=== PATIENT | female | born 1930 | race Caucasian/White ===

== ENCOUNTER 2017-02-13 09:43 | Inpatient (IN) | payer MEDICARE, BC ==
--- NOTE | ~2017-02-13 | DS ---
Discharge Summary [facility] [address] [place]. [address] NAME: RENUKA LAKHANI : 32 STATUS : ADM IN PAT#: [id number] AGE: 86 ADM/REG DATE : 02/13/17 MR#: [id number] REPORT SERV DATE: 02/17/17 DICTATED BY: MOISES WEINBERG DATE: 02/17/17 REPORT STATUS : Draft TRANSCRIBED BY: MODL DATE: 02/17/17 ADMISSION DATE: 02/13/2017 DISCHARGE DATE: 02/17/2017 DISCHARGE DIAGNOSES: 1. Drug reaction most likely related to either Macrodantin or Levaquin. 2. Acute kidney injury, currently improving. 3. Chronic kidney disease stage 3. 4. Type 2 diabetes mellitus. 5. Hypertension. 6. Morbid obesity. 7. Hyperlipidemia. 8. Degenerative joint disease. CONSULTANTS DURING THIS HOSPITALIZATION: None. INVASIVE PROCEDURES DONE DURING THIS HOSPITALIZATION: None. BRIEF HISTORY OF PRESENT ILLNESS: The patient is an 86-year-old, white female, triaged in the emergency room on 02/13/2017 at 0750 hours for respiratory complaints. The patient was referred to the Hospitalist Service for a rash on her lower extremities. There may have been some venous congestion on her chest x-ray. So she was admitted. For detailed history and physical exam, please see my note dictated on 02/13/2017. HOSPITAL COURSE: After being admitted to the hospital, this patient was thought to have a drug reaction most likely related to the recent use of antibiotics. I did not find any evidence of any infection in her urine nor in her lungs, because her procalcitonin level was normal. All her other parameters were stable. After being admitted to the hospital, this patient was taken off all antibiotics. We continued to observe her. There was no evidence of any significant failure. We gave her aggressive nebulizing treatments. I did not want to initiate any antidiuretics. We did hold her hydrochlorothiazide in light of her recent decline in her kidney function and continued to observe. Over the last four days, she has continued to improve. Her creatinine has gone down to about 2.35 today. Her baseline is somewhere around 1.8 or 2.0 and less. I feel that she may be continuing to improve. At this point, her blood pressure had significantly been elevated. So we will resume some of her antihypertensives. She remained stable. Otherwise, we were successfully able to wean her oxygen off. I do not see the need for steroids or diuretics in this elderly patient with multiple comorbidities. She remained stable and is being discharged in stable condition. I have ordered a repeat creatinine again in one week for Dr. Jake Stearns to follow. DISCHARGE DISPOSITION: Back to assisted living. DISCHARGE ACTIVITY: As tolerated. Discharge Summary [address] [place]. [address] NAME: RENUKA LAKHANI : 31 STATUS : ADM IN PAT#: [id number] AGE: 86 ADM/REG DATE : 02/13/17 MR#: [id number] REPORT SERV DATE: 02/17/17 DICTATED BY: MOISES WEINBERG DATE: 02/17/17 REPORT STATUS : Draft TRANSCRIBED BY: ERICKSON DATE: 02/17/17 DISCHARGE DIET: Low sodium, 1800-calorie [place] [employer] Diet. DISCHARGE MEDICATIONS: Januvia 100 mg once daily, Welchol 1250 once daily, Lexapro 20 mg daily, iron 325 mg daily, Neurontin 600 mg twice daily, Lopressor 12.5 mg p.o. twice daily, Nexium 40 mg p.o. once at bedtime, acidophilus 1 tablet p.o. twice daily, simvastatin 10 mg once at bedtime, nitroglycerin 0.4 sublingual p.r.n. for chest pain, DuoNebs one neb every four hours p.r.n. while awake, hydrochlorothiazide 25 mg p.o. once daily, Fiber-Lax, glipizide XL 5 mg once daily, [place] 5/325 one tablet twice daily and q.6 p.r.n. for pain, Artificial Tears as needed, amlodipine 5 mg daily. DISCHARGE FOLLOWUP: With Dr. Jake Stearns in one week. More than 35 minutes spent planning this patient's discharge, reconciling medications, discussing hospital care and followup with the son-in-law over the phone. KAREY/ERICKSON Moises Weinberg M.D. / [id number] CC: Marion Landa M.D.
--- NOTE | ~2017-02-13 | HP ---
History And Physical [id number] [place]. [address] NAME: RENUKA LAKHANI : 32 STATUS : ADM IN [facility]#: [id number] AGE: 86 ADM/REG DATE : 02/13/17 MR#: [id number] REPORT SERV DATE: 02/13/17 DICTATED BY: MOISES GREEN DATE: 02/13/17 REPORT STATUS : Draft TRANSCRIBED BY: MODSatish DATE: 02/13/17 DATE OF ADMISSION: 02/13/2017 CHIEF COMPLAINT: Rash on the legs. BRIEF HISTORY OF PRESENT ILLNESS: The patient is an 86-year-old white female, resident of an assisted living. Apparently, on 02/08/2017, was given Macrobid for what appeared to be a urinary tract infection and then she was diagnosed with pneumonia on 02/11/2017, so she was started on Levaquin. She developed this mild rash on her lower extremity. She has had significant itching. She has back itching. She was brought to the hospital. Her creatinine at baseline has been around 1.8 on 02/08/2017, and had increased up to 2.5 to 2.8, so she has been referred to the Hospitalist Service for further treatment and evaluation. She was noted to have a slightly low pO2, but there was no ABG done in the emergency room, but because she had the elevated creatinine, she was referred to the Hospitalist Service for further treatment and evaluation. REVIEW OF SYSTEMS: Otherwise a 12-point review of systems is negative, as obtained from the patient and the daughter at the bedside. PAST MEDICAL HISTORY: Obtained from the previous records and from the patient directly. She has a history of type 2 diabetes mellitus with peripheral neuropathy, gastroesophageal reflux, hyperlipidemia, obesity, depression and anxiety, osteoarthritis, osteoporosis, essential hypertension, chronic kidney disease with a baseline creatinine around 1.3 to 1.5, and right side ophthalmic distribution zoster in the past as well. ALLERGIES: CODEINE AND MORPHINE. PAST SURGICAL HISTORY: Significant for appendectomy, cholecystectomy, hysterectomy, bilateral total knee arthroplasties in the past, shoulder surgery in 2007, and history of Achilles tendon repair in the past. HOME MEDICATIONS: DuoNeb 1 neb every 4 hours p.r.n. while awake, Norvasc 5 mg daily p.r.n. for blood pressure greater than 160 systolic, Refresh 1 to 2 drops ophthalmic at bedtime, Welchol 1250 mg once daily, Lexapro 20 mg once daily, Nexium 40 mg once daily, iron 325 mg twice daily, gabapentin 600 mg twice daily, Glucotrol XL 5 mg once daily, Robitussin, hydrochlorothiazide 25 mg p.o. daily, hydrocodone 5/325 twice daily and q.6 p.r.n., acidophilus chewable 1 tablet twice daily, Levaquin 750 mg once every evening, Lopressor 12.5 mg twice daily, Macrobid 100 mg twice daily, Nitrostat 0.4 sublingual p.r.n., simvastatin 10 mg once at bedtime, Januvia 100 mg once at bedtime, and Fiber-Lax. SOCIAL HISTORY: Currently resides at an assisted living. She ambulates using a walker. She denies use of alcohol, tobacco, or illicit substances. FAMILY HISTORY: Significant for hypertension and type 2 diabetes mellitus. History And Physical [address] [address] NAME: RENUKA LAKHANI : 32 STATUS : ADM IN [facility]#: [id number] AGE: 86 ADM/REG DATE : 02/13/17 MR#: [id number] REPORT SERV DATE: 02/13/17 DICTATED BY: MOISES GREEN DATE: 02/13/17 REPORT STATUS : Draft TRANSCRIBED BY: ERICKSON DATE: 02/13/17 PHYSICAL EXAMINATION: GENERAL: Elderly white female, obese, lying in a gurney, appears to be in no obvious respiratory distress. She is awake, alert. She is oriented. VITAL SIGNS: Blood pressure 145/51, temp is 98.1, pulse of 72, and saturation of 99% on 2 L of O2. HEENT: Head is normocephalic, atraumatic. Pupils are equal, round, and reactive to light. Extraocular muscles are intact. Sclerae anicteric. Conjunctivae normal. Oropharynx is without lesion. Tongue protrusion is midline. Uvula is midline. NECK: Supple. No jugular venous distention. No carotid bruits or thyromegaly is appreciated. No lymphadenopathy in the neck is palpable. HEART: Regular rate and rhythm. No murmurs, rubs, or gallops are heard. Occasional PACs are noted. PMI is nondisplaced. LUNGS: Clear to auscultation both anteriorly and posteriorly in the periphery; however, expiratory wheezing in the central airways is noted. There is no evidence of any stridor. There is no evidence of any focal consolidation. ABDOMEN: Morbidly obese, soft, nontender, good bowel sounds. No rebound or guarding. No organomegaly. EXTREMITIES: Without cyanosis, clubbing. 1+ pitting edema. SKIN: Shows a fine rash on the lower extremities, most likely chronic. Does not appear to be acute; however, there are few more spots in the back area as well, and there is significant dryness of the skin. NEUROLOGIC: Typical stocking and glove type of sensorineural loss is noted, but otherwise unremarkable. LABORATORY DATA: No ABG were done. Procalcitonin level is 0.34, sodium of 131, potassium of 3.9, chloride of 90, bicarb is 28, BUN 47, creatinine 2.85, glucose is 138, calcium is 7.0, albumin of 2.8. Total protein is normal. Liver function studies are normal. Troponin is less than 0.02. BNP is 51, lactate level is 1.1. White count is 8.6, hemoglobin of 10.0, hematocrit of 29, and platelet count is 179,000, no left shift. PT, INR, and PTT are all normal. Urinalysis is negative with rare bacteria. Chest x-ray: Mild venous congestion, but otherwise unremarkable. IMPRESSION: 1. Probable drug reaction. 2. Acute kidney injury most likely due to dehydration and use of hydrochlorothiazide. 3. Hypertension. 4. Type 2 diabetes mellitus. 5. Morbid obesity. 6. Hyperlipidemia. 7. Degenerative joint disease. PLAN: The patient will be admitted for observation, IV fluids x1 liter will be given. We will replace electrolytes per electrolyte protocol. Check labs in the a.m. Check a UA, C & S. The UA appears to be fairly unremarkable at this time. I do not see an evidence of pneumonia nor any other infection. I do not recommend use of antibiotics in this patient at this time. We will give her aggressive nebulizing treatments. Wean O2. Home medications have been addressed. The patient remains a full code. History And Physical [address] [place]. [address] NAME: RENUKA LAKHANI : 31 STATUS : ADM IN PAT#: [id number] AGE: 86 ADM/REG DATE : 02/13/17 MR#: [id number] REPORT SERV DATE: 02/13/17 DICTATED BY: MOISES GREEN DATE: 02/13/17 REPORT STATUS : Draft TRANSCRIBED BY: ERICKSON DATE: 02/13/17 SV/ERICKSON Moises Green M.D. / [id number] CC: Marion Landa M.D.
[2017-02-13 08:49] LABS: BASOPHILS 0.1 %; BASOPHILS ABSOLUTE 0.01 10/3/uL (0.0-0.16); EOSINOPHILS 10.2 %; EOSINOPHILS ABSOLUTE 0.88 10/3/uL (0.0-0.53); ER CBC TAT 0 Hrs 07 Mins; IMMATURE GRANULOCYTES 0.3 %; IMMATURE GRANULOCYTES ABSOLUTE 0.03 10/3/uL (0.0-0.11); LYMPHOCYTES 10.9 %; LYMPHOCYTES ABSOLUTE 0.94 10/3/uL (0.67-4.30); MEAN CORPUSCULAR HEMOGLOB 31.1 pg (26.0-34.0); MEAN PLATELET VOLUME 9.2 fL (9.2-13.0); MONOCYTES 3.5 %; NEUTROPHILS ABSOLUTE 6.44 10/3/uL (2.02-8.40); PLATELET COUNT 179 10/3/uL (150-400); RED CELL COUNT 3.22 10/6/uL (4.0-5.6); WHITE BLOOD CELLS 8.6 10/3/uL (4.5-10.5)
[2017-02-13 08:52] LABS: HEMATOCRIT 29.1 % (36.0-48.0); MANUAL DIFF NO %; MEAN CORPUS HGB CONC 34.4 g/dL (32.0-36.0); MEAN CORPUSCULAR VOLUME 90.4 fL (80-100)
[2017-02-13 08:55] LABS: ASCORBIC ACID (UR NOT ORDER) NEG (NEG); BILIRUBIN, URINE NEGATIVE (NEG); ER URINALYSIS TAT 0 Hrs 08 Mins; KETONE, URINE NEGATIVE (NEG); LEUKOCYTE ESTERASE(NOT OR NEG (NEG); NITRITE (URINE) NEG (NEG); WBC (NOT ORDERED) (RFLEX) 2 (0-5)
[2017-02-13 08:58] LABS: INTERNATIONAL NORMAL RATI 1.2 UNITS (-); PARTIAL THROMBO TIME 30.9 SEC (22.5-37.2)
[2017-02-13 09:06] LABS: PROTIME (NOT ORD) 14.9 SEC (12.0-14.5)
[2017-02-13 09:07] LABS: A/G RATIO 0.7 (0.7-1.9); ALBUMIN 2.8 G/DL (3.5-5.0); ALKALINE PHOSPHATASE 76 U/L (45-117); BUN (BLOOD UREA NITROGEN) 47 MG/DL (6-23); CHLORIDE, SERUM 90 MMOL/L (96-112); CO2 (CARBON DIOXIDE) 28 MMOL/L (24-34); CREATININE 2.85 MG/DL (0.55-1.02); GFR AFRICAN AMERICAN 17 ML/MIN (>=60); GFR NON AFRICAN AMERICAN 14 ML/MIN (>=60); GLOBULIN 3.8 G/DL (2.5-4.1); GLUCOSE, SERUM 138 MG/DL (60-99); POTASSIUM, SERUM 3.9 MMOL/L (3.5-5.3); SGOT(AST) 23 U/L (5-40); SGPT(ALT) 25 U/L (5-65); SODIUM, SERUM 131 MMOL/L (135-148); TOTAL PROTEIN 6.6 G/DL (6.0-8.5); TROPONIN I <0.02 NG/ML (<0.05)
[2017-02-13 09:12] LABS: LACTATE 1.1 MMOL/L (0.3-2.4)
[2017-02-13 09:35] LABS: PROCALCITONIN 0.34 ng/mL (<0.5)
[~2017-02-13 09:43] MED LIST: A/B OTIC DROPS OT; ACIDOPHILU2 PO; ACTOS30 PO; CELEBREX2 PO; COZ50 PO; DUONEB INH; FERROUS SULF325 M1 PO; FIBERCON PO; FLAG500TAB PO; FORTAMET1000 MG PO; GLUCOPHAGE1000 MG PO; GLUCOTRO10 PO; GLUCPH PO; GLUCXL5 PO; IMOD PO; IRON325 MG PO; JANUVIA100 MG PO; LEVAQUIN5T PO; LEXAPRO20 PO; LIQUITEARS OPH; LOP25 PO; LORT7 PO; MAX25 PO; MIRALAXPKT PO; NEUR600 PO; NEXIUM40 PO; NITROSTAT0.4 MG PO; NORCO1 TA1 PO; NORV5 PO; NYSTOP100000 MG TOP; REFRESH PLUS0.5 % OPH; REG PO; SYSTANE OPH; T PO; TESS PO; TUSSIN DM1 M1 PO; TUSSINDMSF PO; VENTOLIN HFA INH; WELCHOL 625 MG625 MG OR; WELCHOL 625 MG625 MG PO; ZOCOR10 PO
[2017-02-13] MEDS ORDERED: NITROSTAT0.4 MG SL (10:07)
[2017-02-13] MEDS ORDERED: DUONEB INH (10:07)
[2017-02-13] MEDS ORDERED: MACROBID PO (10:08)
[2017-02-13] MEDS ORDERED: GGDM5ML PO ×2 (10:10→10:30)
[2017-02-13] MEDS ORDERED: LEVAQUIN750 MG PO (10:18)
[2017-02-13] MEDS ORDERED: NEXIUM40 PO (10:19)
[2017-02-13] MEDS ORDERED: HYDROCHLOROT25 MG PO (10:19)
[2017-02-13] MEDS ORDERED: GLUCXL5 PO (10:20)
[2017-02-13] MEDS ORDERED: LEXAPRO20 PO (10:20)
[2017-02-13] MEDS ORDERED: FIBER LAX PO (10:20)
[2017-02-13] MEDS ORDERED: NORCO1 TA1 PO ×2 (10:21→10:25)
[2017-02-13] MEDS ORDERED: WELCHOL 625 MG625 MG PO (10:21)
[2017-02-13] MEDS ORDERED: LOP25 PO (10:21)
[2017-02-13] MEDS ORDERED: NEUR600 PO (10:23)
[2017-02-13] MEDS ORDERED: ACIDOPHILU2 PO (10:24)
[2017-02-13] MEDS ORDERED: FERROUS SULF325 M1 PO (10:24)
[2017-02-13] MEDS ORDERED: JANUVIA100 MG PO (10:25)
[2017-02-13] MEDS ORDERED: REFRESH OPH SO0.3 ML OPH (10:25)
[2017-02-13] MEDS ORDERED: ZOCOR10 PO (10:25)
[2017-02-13] MEDS ORDERED: NORV5 PO (10:26)
[2017-02-13 14:42] LABS: ALLENS TEST Pos; BE (BASE EXCESS) 2.2 MEQ/L (0 +/- 2.5); CARBOXYHEMOGLOBIN 1.3 % (0-3); HCO3 (ACTUAL BICARBONATE) 27.6 MEQ/L (23-27); HEMOBLOGIN CONTENT 10.4 G/DL (12-16); INSTRUMENT SERIAL # 8087; METHEMOGLOBIN 0.2 % (0-3); PCO2 (CO2 TENSION) 47 MMHG (35-45); PO2 (O2 TENSION) 60 MMHG (79-93); SAMPLE Arterial; pH 7.39 (7.37-7.43)
[2017-02-13 15:24] LABS: BASOPHILS 0.4 %; BASOPHILS ABSOLUTE 0.03 10/3/uL (0.0-0.16); EOSINOPHILS 10.4 %; EOSINOPHILS ABSOLUTE 0.74 10/3/uL (0.0-0.53); HEMATOCRIT 28.9 % (36.0-48.0); HEMOGLOBIN 9.5 g/dL (12.0-16.0); IMMATURE GRANULOCYTES 0.4 %; IMMATURE GRANULOCYTES ABSOLUTE 0.03 10/3/uL (0.0-0.11); LYMPHOCYTES 12.4 %; LYMPHOCYTES ABSOLUTE 0.88 10/3/uL (0.67-4.30); MEAN CORPUS HGB CONC 32.9 g/dL (32.0-36.0); MEAN CORPUSCULAR HEMOGLOB 30.2 pg (26.0-34.0); MEAN CORPUSCULAR VOLUME 91.7 fL (80-100); MEAN PLATELET VOLUME 9.5 fL (9.2-13.0); MONOCYTES 4.4 %; MONOCYTES ABSOLUTE 0.31 10/3/uL (0.21-1.20); NEUTROPHILS ABSOLUTE 5.11 10/3/uL (2.02-8.40); PLATELET COUNT 167 10/3/uL (150-400); RED CELL COUNT 3.15 10/6/uL (4.0-5.6); WHITE BLOOD CELLS 7.1 10/3/uL (4.5-10.5)
[2017-02-13 15:27] LABS: MANUAL DIFF NO %
[2017-02-13 15:35] LABS: ALBUMIN 2.7 G/DL (3.5-5.0); BUN (BLOOD UREA NITROGEN) 47 MG/DL (6-23); CALCIUM, SERUM 6.8 MG/DL (8.5-10.4); CHLORIDE, SERUM 93 MMOL/L (96-112); CO2 (CARBON DIOXIDE) 27 MMOL/L (24-34); CREATININE 2.94 MG/DL (0.55-1.02); GFR AFRICAN AMERICAN 16 ML/MIN (>=60); GFR NON AFRICAN AMERICAN 14 ML/MIN (>=60); GLUCOSE, SERUM 184 MG/DL (60-99); PHOSPHORUS, SERUM 3.7 MG/DL (2.5-4.5); POTASSIUM, SERUM 3.9 MMOL/L (3.5-5.3); SODIUM, SERUM 131 MMOL/L (135-148)
[2017-02-14 08:47] LABS: BUN (BLOOD UREA NITROGEN) 43 MG/DL (6-23); CALCIUM, SERUM 7.1 MG/DL (8.5-10.4); CHLORIDE, SERUM 94 MMOL/L (96-112); CO2 (CARBON DIOXIDE) 28 MMOL/L (24-34); CREATININE 2.81 MG/DL (0.55-1.02); GFR AFRICAN AMERICAN 17 ML/MIN (>=60); GFR NON AFRICAN AMERICAN 15 ML/MIN (>=60); GLUCOSE, SERUM 141 MG/DL (60-99); SODIUM, SERUM 131 MMOL/L (135-148)
[2017-02-15 05:00] LABS: BASOPHILS 0.3 %; BASOPHILS ABSOLUTE 0.02 10/3/uL (0.0-0.16); EOSINOPHILS 14.4 %; EOSINOPHILS ABSOLUTE 1.06 10/3/uL (0.0-0.53); HEMATOCRIT 26.1 % (36.0-48.0); HEMOGLOBIN 8.8 g/dL (12.0-16.0); IMMATURE GRANULOCYTES 0.7 %; IMMATURE GRANULOCYTES ABSOLUTE 0.05 10/3/uL (0.0-0.11); LYMPHOCYTES 30.7 %; LYMPHOCYTES ABSOLUTE 2.26 10/3/uL (0.67-4.30); MEAN CORPUS HGB CONC 33.7 g/dL (32.0-36.0); MEAN CORPUSCULAR HEMOGLOB 30.6 pg (26.0-34.0); MEAN CORPUSCULAR VOLUME 90.6 fL (80-100); MEAN PLATELET VOLUME 8.6 fL (9.2-13.0); MONOCYTES ABSOLUTE 0.44 10/3/uL (0.21-1.20); NEUTROPHILS 47.9 %; NEUTROPHILS ABSOLUTE 3.53 10/3/uL (2.02-8.40); PLATELET COUNT 201 10/3/uL (150-400); RED CELL COUNT 2.88 10/6/uL (4.0-5.6); WHITE BLOOD CELLS 7.4 10/3/uL (4.5-10.5)
[2017-02-15 05:01] LABS: MANUAL DIFF NO %
[2017-02-15 05:12] LABS: ALBUMIN 2.7 G/DL (3.5-5.0); BUN (BLOOD UREA NITROGEN) 40 MG/DL (6-23); CHLORIDE, SERUM 94 MMOL/L (96-112); CO2 (CARBON DIOXIDE) 26 MMOL/L (24-34); CREATININE 2.68 MG/DL (0.55-1.02); GFR AFRICAN AMERICAN 18 ML/MIN (>=60); GFR NON AFRICAN AMERICAN 16 ML/MIN (>=60); GLUCOSE, SERUM 149 MG/DL (60-99); POTASSIUM, SERUM 3.8 MMOL/L (3.5-5.3); SODIUM, SERUM 129 MMOL/L (135-148)
[2017-02-15 05:28] LABS: CALCIUM, SERUM 7.5 MG/DL (8.5-10.4)
[2017-02-16 06:25] LABS: BASOPHILS 0.4 %; BASOPHILS ABSOLUTE 0.03 10/3/uL (0.0-0.16); EOSINOPHILS 12.3 %; EOSINOPHILS ABSOLUTE 0.94 10/3/uL (0.0-0.53); HEMATOCRIT 27.7 % (36.0-48.0); HEMOGLOBIN 9.3 g/dL (12.0-16.0); IMMATURE GRANULOCYTES 0.7 %; IMMATURE GRANULOCYTES ABSOLUTE 0.05 10/3/uL (0.0-0.11); LYMPHOCYTES 28.5 %; LYMPHOCYTES ABSOLUTE 2.17 10/3/uL (0.67-4.30); MEAN CORPUS HGB CONC 33.6 g/dL (32.0-36.0); MEAN CORPUSCULAR HEMOGLOB 30.6 pg (26.0-34.0); MEAN CORPUSCULAR VOLUME 91.1 fL (80-100); MEAN PLATELET VOLUME 8.8 fL (9.2-13.0); MONOCYTES 4.2 %; MONOCYTES ABSOLUTE 0.32 10/3/uL (0.21-1.20); NEUTROPHILS 53.9 %; NEUTROPHILS ABSOLUTE 4.11 10/3/uL (2.02-8.40); PLATELET COUNT 215 10/3/uL (150-400); RBC DISTRIBUTION WIDTH 13.6 % (12.0-16.0); RED CELL COUNT 3.04 10/6/uL (4.0-5.6); WHITE BLOOD CELLS 7.6 10/3/uL (4.5-10.5)
[2017-02-16 06:28] LABS: MANUAL DIFF NO %
[2017-02-16 06:33] LABS: BUN (BLOOD UREA NITROGEN) 37 MG/DL (6-23); CALCIUM, SERUM 7.8 MG/DL (8.5-10.4); CHLORIDE, SERUM 94 MMOL/L (96-112); CO2 (CARBON DIOXIDE) 28 MMOL/L (24-34); CREATININE 2.29 MG/DL (0.55-1.02); GFR AFRICAN AMERICAN 22 ML/MIN (>=60); GFR NON AFRICAN AMERICAN 19 ML/MIN (>=60); GLUCOSE, SERUM 138 MG/DL (60-99); PHOSPHORUS, SERUM 4.5 MG/DL (2.5-4.5); POTASSIUM, SERUM 4.5 MMOL/L (3.5-5.3); SODIUM, SERUM 131 MMOL/L (135-148)
[2017-02-17 05:35] LABS: BUN (BLOOD UREA NITROGEN) 38 MG/DL (6-23); CALCIUM, SERUM 8.1 MG/DL (8.5-10.4); CHLORIDE, SERUM 96 MMOL/L (96-112); CO2 (CARBON DIOXIDE) 29 MMOL/L (24-34); CREATININE 2.35 MG/DL (0.55-1.02); GFR AFRICAN AMERICAN 21 ML/MIN (>=60); GFR NON AFRICAN AMERICAN 18 ML/MIN (>=60); GLUCOSE, SERUM 148 MG/DL (60-99); PHOSPHORUS, SERUM 4.2 MG/DL (2.5-4.5); POTASSIUM, SERUM 4.6 MMOL/L (3.5-5.3); SODIUM, SERUM 134 MMOL/L (135-148)
[2017-07-05] MEDS ORDERED: PROTONIX PO (16:44)
[2017-07-05] MEDS ORDERED: INSTA-GLUCOSE GEL PO (16:55)
[2017-07-05] MEDS ORDERED: HYDROCHLOROT25 MG PO (16:58)
[2017-07-05] MEDS ORDERED: NYSTATPOW TOP ×2 (17:08→17:09)
[2017-07-05] MEDS ORDERED: CALMOSEPTINE EX (17:09)
[2017-07-05] MEDS ORDERED: CALMOSEPTINE O2.5 OZ TOP (17:10)
[2017-07-05] MEDS ORDERED: VOLTAREN1 % TOP (17:11)
[2017-07-05] MEDS ORDERED: VITC500 PO (17:12)
[2017-07-05] MEDS ORDERED: GERI-LANTA PO (17:12)
[2017-07-05] MEDS ORDERED: BISR PR (17:13)
[2017-07-05] MEDS ORDERED: DESONIDE XX (17:14)
[2017-07-05] MEDS ORDERED: MOMUD PO (17:14)
[2017-07-05] MEDS ORDERED: MAGOX4 PO (17:15)
[2017-07-05] MEDS ORDERED: FLORASTOR250 MG PO (17:15)
[2017-07-05] MEDS ORDERED: VITD PO (17:16)
[2017-07-07] MEDS ORDERED: ZOFRAN ODT4 MG PO (12:48)
[2017-07-07] MEDS ORDERED: AUG500 PO (12:54)
== END 2017-02-17 12:52 | disposition home or self-care (01) | DRG 699 ==
LOC: ER 09:43 → 6NO 11:45
PROVIDERS: Internal Medicine; Nurse Practitioner
DX: N00.8 Acute nephritic syndrome with other morphologic changes (principal); Z68.41 Body mass index [BMI] 40.0-44.9, adult; E11.22 Type 2 diabetes mellitus with diabetic chronic kidney disease; N18.3 Chronic kidney disease, stage 3 (moderate); E86.0 Dehydration; T37.8X5A Adverse effect of other specified systemic anti-infectives and antiparasitics, initial encounter; I12.9 Hypertensive chronic kidney disease with stage 1 through stage 4 chronic kidney disease, or unspecified chronic kidney disease; E66.01 Morbid (severe) obesity due to excess calories; M19.90 Unspecified osteoarthritis, unspecified site; E78.5 Hyperlipidemia, unspecified
CPT/HCPCS: 36600; 71010; 80048; 80053; 80069; 81001; 82805; 82962; 83605; 83880; 84145; 84484; 85025; 85610; 85730; 87040; 89190; 93005; 94640; 99285; A9270-GY; J2405; J2550

== ENCOUNTER 2017-03-13 21:44 | Emergency (ER) | payer MEDICARE, BC ==
[2017-03-13 20:33] LABS: BASOPHILS 0.3 %; BASOPHILS ABSOLUTE 0.03 10/3/uL (0.0-0.16); EOSINOPHILS 3.8 %; EOSINOPHILS ABSOLUTE 0.38 10/3/uL (0.0-0.53); HEMATOCRIT 28.9 % (36.0-48.0); HEMOGLOBIN 9.5 g/dL (12.0-16.0); IMMATURE GRANULOCYTES 0.5 %; IMMATURE GRANULOCYTES ABSOLUTE 0.05 10/3/uL (0.0-0.11); LYMPHOCYTES 30.6 %; LYMPHOCYTES ABSOLUTE 3.09 10/3/uL (0.67-4.30); MEAN CORPUS HGB CONC 32.9 g/dL (32.0-36.0); MEAN CORPUSCULAR HEMOGLOB 30.4 pg (26.0-34.0); MEAN CORPUSCULAR VOLUME 92.3 fL (80-100); MEAN PLATELET VOLUME 8.8 fL (9.2-13.0); MONOCYTES 4.9 %; NEUTROPHILS 59.9 %; NEUTROPHILS ABSOLUTE 6.06 10/3/uL (2.02-8.40); PLATELET COUNT 218 10/3/uL (150-400); RBC DISTRIBUTION WIDTH 14.1 % (12.0-16.0); RED CELL COUNT 3.13 10/6/uL (4.0-5.6); WHITE BLOOD CELLS 10.1 10/3/uL (4.5-10.5)
[2017-03-13 20:37] LABS: MANUAL DIFF NO %
[2017-03-13 20:43] LABS: ASCORBIC ACID (UR NOT ORDER) NEG (NEG); BILIRUBIN, URINE NEGATIVE (NEG); ER URINALYSIS TAT 0 Hrs 08 Mins; KETONE, URINE NEGATIVE (NEG); LEUKOCYTE ESTERASE(NOT OR NEG (NEG); NITRITE (URINE) NEG (NEG); WBC (NOT ORDERED) (RFLEX) 1 (0-5)
[2017-03-13 20:43] LABS: PARTIAL THROMBO TIME 27.7 SEC (22.5-37.2)
[2017-03-13 20:47] LABS: BUN (BLOOD UREA NITROGEN) 40 MG/DL (6-23); CHEST PAIN PROFILE TAT 0 Hrs 20 Mins; CHLORIDE, SERUM 97 MMOL/L (96-112); CO2 (CARBON DIOXIDE) 30 MMOL/L (24-34); CREATININE 2.13 MG/DL (0.55-1.02); GFR AFRICAN AMERICAN 24 ML/MIN (>=60); GFR NON AFRICAN AMERICAN 21 ML/MIN (>=60); GLUCOSE, SERUM 156 MG/DL (60-99); POTASSIUM, SERUM 3.8 MMOL/L (3.5-5.3); SODIUM, SERUM 137 MMOL/L (135-148); TROPONIN I <0.02 NG/ML (<0.05)
[2017-03-13 20:48] LABS: LACTATE 1.5 MMOL/L (0.3-2.4)
[~2017-03-13 21:44] MED LIST changes: +FIBER LAX PO; +GGDM5ML PO; +HYDROCHLOROT25 MG PO; +LEVAQUIN750 MG PO; +MACROBID PO; +NITROSTAT0.4 MG SL; +REFRESH OPH SO0.3 ML OPH
[2017-03-13 21:57] LABS: PROCALCITONIN <0.05 ng/mL (<0.5)
[2017-07-05] MEDS ORDERED: PROTONIX PO (16:44)
[2017-07-05] MEDS ORDERED: INSTA-GLUCOSE GEL PO (16:55)
[2017-07-05] MEDS ORDERED: HYDROCHLOROT25 MG PO (16:58)
[2017-07-05] MEDS ORDERED: NYSTATPOW TOP ×2 (17:08→17:09)
[2017-07-05] MEDS ORDERED: CALMOSEPTINE EX (17:09)
[2017-07-05] MEDS ORDERED: CALMOSEPTINE O2.5 OZ TOP (17:10)
[2017-07-05] MEDS ORDERED: VOLTAREN1 % TOP (17:11)
[2017-07-05] MEDS ORDERED: VITC500 PO (17:12)
[2017-07-05] MEDS ORDERED: GERI-LANTA PO (17:12)
[2017-07-05] MEDS ORDERED: BISR PR (17:13)
[2017-07-05] MEDS ORDERED: MOMUD PO (17:14)
[2017-07-05] MEDS ORDERED: DESONIDE XX (17:14)
[2017-07-05] MEDS ORDERED: MAGOX4 PO (17:15)
[2017-07-05] MEDS ORDERED: FLORASTOR250 MG PO (17:15)
[2017-07-05] MEDS ORDERED: VITD PO (17:16)
[2017-07-07] MEDS ORDERED: ZOFRAN ODT4 MG PO (12:48)
[2017-07-07] MEDS ORDERED: AUG500 PO (12:54)
== END 2017-03-13 22:03 | disposition home or self-care (01) ==
LOC: ER 21:44
PROVIDERS: Nurse Practitioner
DX: R06.00 Dyspnea, unspecified (principal); N18.9 Chronic kidney disease, unspecified; I12.9 Hypertensive chronic kidney disease with stage 1 through stage 4 chronic kidney disease, or unspecified chronic kidney disease; E11.22 Type 2 diabetes mellitus with diabetic chronic kidney disease; D64.9 Anemia, unspecified; K21.9 Gastro-esophageal reflux disease without esophagitis; F32.9 Major depressive disorder, single episode, unspecified; F41.9 Anxiety disorder, unspecified; E78.5 Hyperlipidemia, unspecified; Z88.5 Allergy status to narcotic agent; Z88.1 Allergy status to other antibiotic agents; Z88.8 Allergy status to other drugs, medicaments and biological substances; Z79.899 Other long term (current) drug therapy
CPT/HCPCS: 71010; 80048; 81001; 83605; 83735; 83880; 84145; 84484; 85025; 85610; 85730; 87040; 93005; 94640; 99285; A9270-GY

== ENCOUNTER 2017-03-21 04:50 | Inpatient (IN) | payer MEDICARE, BC ==
--- NOTE | ~2017-03-21 | HP ---
History And Physical [id number] [place]. [address] NAME: RENUKA HUMPHREYS : 32 STATUS : ADM Ida PAT#: [id number] AGE: 86 ADM/REG DATE : 03/21/17 MR#: [id number] REPORT SERV DATE: 03/21/17 DICTATED BY: KENNY MARTINEZ DATE: 03/21/17 REPORT STATUS : Draft TRANSCRIBED BY: MODSatish DATE: 03/21/17 DATE OF ADMISSION: 03/21/2017 POINT OF ENTRY: [facility]. CHIEF COMPLAINT: Profuse diarrhea. HISTORY OF PRESENT ILLNESS: Ms. Humphreys is an 86-year-old female with history of non-insulin dependent diabetes mellitus type 2 with diabetic neuropathy, hypertension, hyperlipidemia, morbid obesity, gastroesophageal reflux disease, as well as chronic kidney stage 3, baseline creatinine of approximately 1.8 to 2.2, who presents to the emergency room today with continued profuse diarrhea. The patient states that her diarrhea began about two or three days ago. She was actually seen in our ER two evenings ago for same complaints. C. diff test at that time was negative. Basic labs were unremarkable. She was discharged back to her nursing facility, [facility]. She has continued to have multiple episodes of diarrhea prompting her presentation back to the emergency department this evening. She denies any fevers, night sweats, chills, chest pain, shortness of breath, vomiting, constipation, dysuria, melena, hematochezia, or hemoptysis. She does report some nausea along with the diarrhea and actually just reported new onset of some vague left lower quadrant crampy abdominal pain, beginning approximately a few hours ago while she has been here in the emergency department. REVIEW OF SYSTEMS: Comprehensive review of systems otherwise negative unless listed in the history of present illness. Initial evaluation in the emergency department notable for a CT scan of the abdomen and pelvis that showed some diverticulosis as well as concern for early diverticulitis in the descending and sigmoid colon. Labs notable for a white count of 12,400, creatinine is 2.55. Urinalysis is consistent with urinary tract infection. She was started on some antibiotics as well as IV fluids and admitted to the Hospitalist Service. PREVIOUS MEDICAL HISTORY: 1. Chronic kidney stage 3, baseline creatinine of approximately 1.8 to 2.2. 2. Sso-xaswqvs-rgimpmgvt diabetes mellitus type 2 with diabetic neuropathy. 3. Gastroesophageal reflux disease. 4. Hypertension. 5. Hyperlipidemia. 6. Obstructive sleep apnea, noncompliant on CPAP therapy. 7. Questionable history of IBS. 8. Depression. 9. Osteoarthritis. 10.Osteoporosis. History And Physical [address] [place]. [address] NAME: RENUKA HUMPHREYS : 32 STATUS : ADM Ida PAT#: [id number] AGE: 86 ADM/REG DATE : 03/21/17 MR#: [id number] REPORT SERV DATE: 03/21/17 DICTATED BY: KENNY MARTINEZ DATE: 03/21/17 REPORT STATUS : Draft TRANSCRIBED BY: ERICKSON DATE: 03/21/17 11.Morbid obesity. 12.History of dysphagia but now reportedly consuming normal consistency foods. SURGICAL HISTORY: 1. Abdominal hysterectomy. 2. Cholecystectomy. 3. Appendectomy. 4. Shoulder surgery. 5. Bilateral total knee. ALLERGIES: OPIOIDS, MORPHINE, CODEINE, MACROBID, AND LEVAQUIN. HOME MEDICATIONS: Pending at the time of dictation. SOCIAL HISTORY: Denies any tobacco, alcohol, or illicits. Long-term resident of [facility]. FAMILY MEDICAL HISTORY: Mother with hypertension. Father's history is unknown. Siblings with hypertension as well. LABS AND IMAGIN. White count 12.4, hemoglobin 9.4, hematocrit is 28.1, and platelet count is 241. 2. Sodium is 136, potassium 3.9, chloride 97, carbon dioxide 30, BUN 45, creatinine 2.55, glucose is 123, calcium is 8.0, protein 6.9, albumin is 3.3, bilirubin is 0.3, ALT is 15, AST 11, and alkaline phosphatase is 71. 3. Lipase is 71. 4. CT of the abdomen and pelvis shows diverticulosis with possible early or mild diverticulitis. PHYSICAL EXAMINATION: VITAL SIGNS: Temperature is afebrile, pulse is 70, respirations 18, and saturating 90% on room air. Blood pressure is 134/55. GENERAL: The patient is a morbidly obese appearing female, who is in no acute distress. Resting comfortably in bed. HEENT: Atraumatic and normocephalic. Slightly dry mucous membranes. Pupils are equal, round, reactive to light and accommodation. Extraocular eye movements intact. NECK: No jugular venous distention or carotid bruits. CARDIAC: Regular rate and rhythm. No murmurs or gallops. Normal S1, S2. LUNGS: Clear to auscultation bilaterally. No wheezes, rhonchi, or crackles. ABDOMEN: Obese, soft, somewhat tender to palpation at the left lower quadrant. No rebound, guarding, rigidity. EXTREMITIES: Warm, perfused. No cyanosis, clubbing, or edema. SKIN: Warm and dry. PSYCH: Affect appropriate. NEURO: Alert and oriented x3. Cranial nerves 2 through 12 grossly intact. Speech is normal. Gait not assessed. History And Physical [address] [address] NAME: RENUKA HUMPHREYS : 32 STATUS : ADM Ida PAT#: [id number] AGE: 86 ADM/REG DATE : 03/21/17 MR#: [id number] REPORT SERV DATE: 03/21/17 DICTATED BY: KENNY MARTINEZ DATE: 03/21/17 REPORT STATUS : Draft TRANSCRIBED BY: ERICKSON DATE: 03/21/17 ASSESSMENT AND PLAN: Ms. Humphreys is an 86-year-old female who presents with a few day history of profuse diarrhea and found to have evidence of early or mild diverticulitis as well as urinary tract infection as well as worsening renal dysfunction. PROBLEM LIST: 1. Diverticulitis. 2. Urinary tract infection. 3. Acute kidney injury on chronic kidney stage 3. 4. Profuse diarrhea. 5. Leukocytosis. PLAN: 1. Diverticulitis. We will place patient on IV antibiotics of Flagyl and Rocephin as she is Levaquin allergic. C. diff has been negative from yesterday. We will send off additional stool sample for stool culture as well as ova and parasites. 2. Urinary tract infection. Follow up urine culture. IV antibiotics. 3. Acute kidney injury on chronic kidney stage 3 likely secondary to GI losses. Holding nephrotoxic medications. Provide IV fluid hydration. 4. Profuse diarrhea. Likely secondary to #1 above. C. diff is negative. Again, we will follow up stool cultures and ova and parasites. We will start Florastor given antibiotics as well as some low-dose p.r.n. Imodium to try to slow down her diarrhea. 5. Leukocytosis. Again, likely secondary to #1 and #2 above. Blood cultures have been obtained. CT of the abdomen and pelvis shows diverticulitis. We will continue to monitor. 6. DVT prophylaxis. Heparin subcu given CKD. CODE STATUS: The patient wished to be full code. JCJaswinder/MODL Kenny Martinez MD / [id number] CC: Jake Stearns M.D.
--- NOTE | ~2017-03-21 | DS ---
Discharge Summary [address] [facility] [place]. [address] NAME: RENUKA LAKHANI : 32 STATUS : ADM IN [facility]#: [id number] AGE: 86 ADM/REG DATE : 03/21/17 MR#: [id number] REPORT SERV DATE: 03/25/17 DICTATED BY: DATE: REPORT STATUS : Draft TRANSCRIBED BY: MODL DATE: 03/24/17 ADMISSION DATE: 03/21/2017 DISCHARGE DATE: 03/24/2017 DISCHARGE DIAGNOSES: 1. Acute diverticulitis. 2. Urinary tract infection with an Enterobacter cloacae. 3. Acute kidney injury on chronic kidney disease stage 3. 4. Diarrhea. 5. Leukocytosis. 6. Right ankle swelling of lateral malleolus. CONSULTING PHYSICIAN: None. DISCHARGE MEDICATIONS: Include Augmentin 500 mg p.o. q.12 hours x7 days, artificial tears, WelChol 1250 mg p.o. daily, Lexapro 20 mg p.o. daily, ferrous sulfate 325 mg p.o. b.i.d., Neurontin 600 mg p.o. b.i.d., hydrochlorothiazide 25 mg p.o. daily, metoprolol 25 mg p.o. b.i.d., Nexium 40 mg p.o. before breakfast, acidophilus one tablet p.o. before breakfast and supper, Zocor 10 mg p.o. at bedtime, Bactrim DS 0.5 tablet p.o. q.12 hours x7 days, nitroglycerin 0.4 mg sublingual p.r.n. for chest pain, DuoNeb nebulizer inhalation q.4 hours p.r.n. for shortness of breath, Glucotrol XL 5 mg p.o. daily, Januvia 100 mg p.o. at bedtime, [place] 5/325 mg tablet one tablet p.o. q.6 hours p.r.n. for pain, Norvasc 5 mg p.o. daily p.r.n. for systolic blood pressure greater than 160, Zofran 4 mg p.o. q.4-6 hours p.r.n. for nausea. IMAGING: Include CT of the abdomen and pelvis without contrast demonstrated diverticulosis of the descending colon and sigmoid colon with thickened wall and adjacent edema consistent with early acute diverticulitis. Right ankle x-ray demonstrated no acute injury. There was some distal atherosclerosis as well as degenerative calcification of the Achilles tendon. Soft tissues around the ankle are swollen. For full H and P, please refer to Dr. Olayinka Kathleen's dictation on 03/21/2017. HOSPITAL COURSE/PROBLEM LIST: 1. Acute diverticulitis. Initially, the patient's white blood cell count is 12.4, today is 6.9. She came in with diarrhea and abdominal pain, which have resolved. She has been afebrile. Initially, the patient was on IV Rocephin and Flagyl from admission until yesterday at which time, I started Augmentin p.o. as well as Bactrim p.o. I will continue these for seven days after discharge. The patient is tolerating p.o., so I will advance to 2000-calorie ADA diet today. 2. Urinary tract infection, present on arrival. Urine culture demonstrated Enterobacter cloacae, which is susceptible to Bactrim p.o. I will continue this for seven days, half tablet DS considering the patient's kidney function. 3. Acute kidney injury on chronic kidney disease. The patient's creatinine today is 1.85. Her baseline is 1.8 to 2.2. 4. Diarrhea, resolved. 5. Leukocytosis, resolved. Discharge Summary [address] [address] NAME: RENUKA LAKHANI : 32 STATUS : ADM IN [facility]#: [id number] AGE: 86 ADM/REG DATE : 03/21/17 MR#: [id number] REPORT SERV DATE: 03/25/17 DICTATED BY: DATE: REPORT STATUS : Draft TRANSCRIBED BY: MODL DATE: 03/24/17 6. Right ankle swelling as mentioned above. X-ray is negative. If does not improve, the patient will need to follow up with primary care provider. 7. Hypertension. I will continue the patient's home medications and actually, I am going to increase her Lopressor from 12.5 mg p.o. b.i.d. to 25 mg p.o. b.i.d. The patient's blood pressure this morning was 190. She is not in any acute distress or pain. She will also need a close followup with her primary care provider concerning her blood pressure. 8. Obesity hypoventilation syndrome. The patient has required low amounts of O2 via nasal cannula when lying flat or sleeping. Last documented oxygen saturation was 96% on 2 L. We will discontinue the oxygen and ensure the patient is maintaining appropriate oxygen saturation level prior to discharge. Lungs are clear. The patient is in no acute distress. Respirations are 18. This discharge took greater than 30 minutes due to medication reconciliation, discussion with the patient as far as followup, and teaching concerning disease processes. CLR/MODL Adam Denney NP / [id number] CC: MD Jake Kraus M.D.
--- NOTE | ~2017-03-21 | DS ---
Discharge Summary [address] [id number] [place]. [address] NAME: RENUKA LAKHANI : 32 STATUS : DIS IN PAT#: [id number] AGE: 86 ADM/REG DATE : 03/21/17 MR#: [id number] REPORT SERV DATE: 03/26/17 DICTATED BY: DATE: REPORT STATUS : Draft TRANSCRIBED BY: MODL DATE: 03/25/17 ADMISSION DATE: 03/21/2017 DISCHARGE DATE: 03/25/2017 DISCHARGE DIAGNOSES: 1. Acute diverticulitis. 2. Urinary tract infection present on arrival with Enterobacter cloacae. 3. Acute kidney injury on chronic kidney disease, resolved. 4. Diarrhea, resolved. 5. Leukocytosis, resolved. 6. Right ankle pain and swelling of the lateral malleolus. 7. Hypertension. CONSULTING PHYSICIANS: None. DISCHARGE MEDICATIONS: Include Artificial Tears 1 to 2 drops in right eye at bedtime, Augmentin 500 mg p.o. q.12 hours x6 days, Welchol 1250 mg p.o. daily, Lexapro 20 mg p.o. daily, ferrous sulfate 325 mg p.o. b.i.d., Neurontin 600 mg p.o. b.i.d., hydrochlorothiazide 25 mg p.o. daily, NovoLog sliding scale, Lopressor 25 mg p.o. b.i.d., Nexium 40 mg p.o. before breakfast daily, lactobacillus 1 tab p.o. before breakfast and supper, Zocor 10 mg p.o. at bedtime, Bactrim DS half tablet p.o. q.12 hours x6 days, Norvasc 5 mg p.o. daily p.r.n. for systolic blood pressure greater than 160, glipizide ER 5 mg p.o. daily, [place] 5/325 mg tablet one tab p.o. q.6 hours p.r.n. for pain, and Januvia 100 mg p.o. at bedtime. IMAGING: Includes CT of the abdomen and pelvis without contrast, which demonstrated diverticulosis of the descending colon and the sigmoid colon with thickened wall and adjacent edema consistent with early acute diverticulitis. Right ankle x-ray demonstrated soft-tissue swelling but no acute injury. There was degenerative calcification of the Achilles tendon and distal atherosclerosis. Chest x-ray, PA and lateral, showed no acute cardiopulmonary disease. There was stable bilateral shoulder arthroplasty and mild cardiomegaly noted. For full H and P, please refer to Dr. Olayinka Kathleen's dictation on 03/21/2017. Please also see discharge summary yesterday on 03/24/2017. Since that time, the patient had a physical therapy evaluation which they recommended inpatient rehabilitation. The patient was a 2-person max assist to stand which is a change for her. She was placed at [facility] and will transfer today 2 p.m. We will discharge the patient on oxygen for her obesity hypoventilation syndrome. They can re-evaluate there whether or not she will need it post discharge from their facility. There are no other new issues today. Vital signs have been stable. Last blood pressure was 143/79, O2 saturation 96% on room air which apparently she vacillates in oxygen saturation from 89 to 96, occasionally requiring O2, respirations 20, heart rate 69, and temp 99.1. Again, I will continue Augmentin and Bactrim renal dosed for 6 more days post discharge for her acute diverticulitis as well as UTI with Enterobacter cloacae. CLR/MODL Discharge Summary [address] [address] NAME: RENUKA LAKHANI : 32 STATUS : DIS IN PAT#: [id number] AGE: 86 ADM/REG DATE : 03/21/17 MR#: [id number] REPORT SERV DATE: 03/26/17 DICTATED BY: DATE: REPORT STATUS : Draft TRANSCRIBED BY: DORYSL DATE: 03/25/17 Adam Denney NP / [id number] CC: MD Jake Kraus M.D.
[2017-03-21 04:11] LABS: BASOPHILS 0.1 %; BASOPHILS ABSOLUTE 0.01 10/3/uL (0.0-0.16); EOSINOPHILS 3.3 %; EOSINOPHILS ABSOLUTE 0.41 10/3/uL (0.0-0.53); HEMATOCRIT 28.1 % (36.0-48.0); HEMOGLOBIN 9.4 g/dL (12.0-16.0); IMMATURE GRANULOCYTES 0.4 %; IMMATURE GRANULOCYTES ABSOLUTE 0.05 10/3/uL (0.0-0.11); LYMPHOCYTES 19.4 %; MEAN CORPUS HGB CONC 33.5 g/dL (32.0-36.0); MEAN CORPUSCULAR HEMOGLOB 30.8 pg (26.0-34.0); MEAN CORPUSCULAR VOLUME 92.1 fL (80-100); MEAN PLATELET VOLUME 9.1 fL (9.2-13.0); MONOCYTES 4.2 %; MONOCYTES ABSOLUTE 0.52 10/3/uL (0.21-1.20); NEUTROPHILS 72.6 %; NEUTROPHILS ABSOLUTE 8.98 10/3/uL (2.02-8.40); PLATELET COUNT 241 10/3/uL (150-400); RBC DISTRIBUTION WIDTH 14.3 % (12.0-16.0); RED CELL COUNT 3.05 10/6/uL (4.0-5.6); WHITE BLOOD CELLS 12.4 10/3/uL (4.5-10.5)
[2017-03-21 04:15] LABS: MANUAL DIFF NO %
[2017-03-21 04:16] LABS: ASCORBIC ACID (UR NOT ORDER) NEG (NEG); BILIRUBIN, URINE NEGATIVE (NEG); ER URINALYSIS TAT 0 Hrs 00 Mins; KETONE, URINE NEGATIVE (NEG); LEUKOCYTE ESTERASE(NOT OR LARGE (NEG); NITRITE (URINE) NEG (NEG); WBC (NOT ORDERED) (RFLEX) 93 (0-5)
[2017-03-21 04:27] LABS: A/G RATIO 0.9 (0.7-1.9); ALBUMIN 3.3 G/DL (3.5-5.0); ALKALINE PHOSPHATASE 71 U/L (45-117); CHLORIDE, SERUM 97 MMOL/L (96-112); CO2 (CARBON DIOXIDE) 30 MMOL/L (24-34); CREATININE 2.55 MG/DL (0.55-1.02); GFR AFRICAN AMERICAN 19 ML/MIN (>=60); GFR NON AFRICAN AMERICAN 17 ML/MIN (>=60); GLOBULIN 3.6 G/DL (2.5-4.1); GLUCOSE, SERUM 123 MG/DL (60-99); POTASSIUM, SERUM 3.9 MMOL/L (3.5-5.3); SGOT(AST) 11 U/L (5-40); SGPT(ALT) 15 U/L (5-65); SODIUM, SERUM 136 MMOL/L (135-148); TOTAL BILIRUBIN 0.3 MG/DL (0-1.2); TOTAL PROTEIN 6.9 G/DL (6.0-8.5)
[2017-03-21 04:28] LABS: BUN (BLOOD UREA NITROGEN) 45 MG/DL (6-23)
[2017-03-21] MEDS ORDERED: LOM PO (09:23)
[2017-03-21] MEDS ORDERED: NYSTATPOW TOP (09:24)
[2017-03-21] MEDS ORDERED: PEP20 PO (09:25)
[2017-03-21] MEDS ORDERED: ZOFRAN4 PO (09:26)
[2017-03-21] MEDS ORDERED: TESS PO (09:28)
[2017-03-21] MEDS ORDERED: KENCR.1 TOP (09:29)
[2017-03-22 06:31] LABS: BASOPHILS 0.1 %; BASOPHILS ABSOLUTE 0.01 10/3/uL (0.0-0.16); EOSINOPHILS 4.4 %; EOSINOPHILS ABSOLUTE 0.39 10/3/uL (0.0-0.53); HEMATOCRIT 26.6 % (36.0-48.0); HEMOGLOBIN 8.6 g/dL (12.0-16.0); IMMATURE GRANULOCYTES 0.2 %; IMMATURE GRANULOCYTES ABSOLUTE 0.02 10/3/uL (0.0-0.11); LYMPHOCYTES 20.9 %; LYMPHOCYTES ABSOLUTE 1.84 10/3/uL (0.67-4.30); MEAN CORPUS HGB CONC 32.3 g/dL (32.0-36.0); MEAN CORPUSCULAR HEMOGLOB 29.8 pg (26.0-34.0); MONOCYTES 4.3 %; MONOCYTES ABSOLUTE 0.38 10/3/uL (0.21-1.20); NEUTROPHILS 70.1 %; NEUTROPHILS ABSOLUTE 6.16 10/3/uL (2.02-8.40); PLATELET COUNT 192 10/3/uL (150-400); RBC DISTRIBUTION WIDTH 14.2 % (12.0-16.0); RED CELL COUNT 2.89 10/6/uL (4.0-5.6); WHITE BLOOD CELLS 8.8 10/3/uL (4.5-10.5)
[2017-03-22 06:33] LABS: MANUAL DIFF NO %
[2017-03-22 06:34] LABS: ALBUMIN 2.9 G/DL (3.5-5.0); BUN (BLOOD UREA NITROGEN) 40 MG/DL (6-23); CALCIUM, SERUM 7.3 MG/DL (8.5-10.4); CHLORIDE, SERUM 103 MMOL/L (96-112); CO2 (CARBON DIOXIDE) 25 MMOL/L (24-34); GFR AFRICAN AMERICAN 22 ML/MIN (>=60); GFR NON AFRICAN AMERICAN 19 ML/MIN (>=60); GLUCOSE, SERUM 136 MG/DL (60-99); PHOSPHORUS, SERUM 4.6 MG/DL (2.5-4.5); POTASSIUM, SERUM 3.8 MMOL/L (3.5-5.3); SODIUM, SERUM 138 MMOL/L (135-148)
[2017-03-23 06:46] LABS: BASOPHILS 0.3 %; BASOPHILS ABSOLUTE 0.02 10/3/uL (0.0-0.16); EOSINOPHILS 5.9 %; EOSINOPHILS ABSOLUTE 0.43 10/3/uL (0.0-0.53); HEMATOCRIT 24.8 % (36.0-48.0); HEMOGLOBIN 8.1 g/dL (12.0-16.0); IMMATURE GRANULOCYTES 0.1 %; IMMATURE GRANULOCYTES ABSOLUTE 0.01 10/3/uL (0.0-0.11); LYMPHOCYTES ABSOLUTE 1.76 10/3/uL (0.67-4.30); MEAN CORPUS HGB CONC 32.7 g/dL (32.0-36.0); MEAN CORPUSCULAR HEMOGLOB 30.7 pg (26.0-34.0); MEAN CORPUSCULAR VOLUME 93.9 fL (80-100); MONOCYTES 5.1 %; MONOCYTES ABSOLUTE 0.37 10/3/uL (0.21-1.20); NEUTROPHILS 64.6 %; NEUTROPHILS ABSOLUTE 4.73 10/3/uL (2.02-8.40); PLATELET COUNT 191 10/3/uL (150-400); RBC DISTRIBUTION WIDTH 14.4 % (12.0-16.0); RED CELL COUNT 2.64 10/6/uL (4.0-5.6); WHITE BLOOD CELLS 7.3 10/3/uL (4.5-10.5)
[2017-03-23 06:50] LABS: MANUAL DIFF NO %
[2017-03-23 07:02] LABS: CALCIUM, SERUM 7.6 MG/DL (8.5-10.4); CHLORIDE, SERUM 105 MMOL/L (96-112); CO2 (CARBON DIOXIDE) 27 MMOL/L (24-34); CREATININE 2.09 MG/DL (0.55-1.02); GFR AFRICAN AMERICAN 24 ML/MIN (>=60); GFR NON AFRICAN AMERICAN 21 ML/MIN (>=60); GLUCOSE, SERUM 149 MG/DL (60-99); PHOSPHORUS, SERUM 3.8 MG/DL (2.5-4.5); POTASSIUM, SERUM 3.9 MMOL/L (3.5-5.3); SODIUM, SERUM 138 MMOL/L (135-148)
[2017-03-23 07:04] LABS: BUN (BLOOD UREA NITROGEN) 33 MG/DL (6-23)
[2017-03-24 05:26] LABS: BASOPHILS 0.4 %; BASOPHILS ABSOLUTE 0.03 10/3/uL (0.0-0.16); EOSINOPHILS 6.2 %; EOSINOPHILS ABSOLUTE 0.43 10/3/uL (0.0-0.53); HEMATOCRIT 25.3 % (36.0-48.0); HEMOGLOBIN 8.2 g/dL (12.0-16.0); IMMATURE GRANULOCYTES 0.3 %; IMMATURE GRANULOCYTES ABSOLUTE 0.02 10/3/uL (0.0-0.11); LYMPHOCYTES 29.4 %; LYMPHOCYTES ABSOLUTE 2.03 10/3/uL (0.67-4.30); MEAN CORPUS HGB CONC 32.4 g/dL (32.0-36.0); MEAN CORPUSCULAR HEMOGLOB 30.8 pg (26.0-34.0); MEAN CORPUSCULAR VOLUME 95.1 fL (80-100); MEAN PLATELET VOLUME 9.1 fL (9.2-13.0); MONOCYTES 5.6 %; MONOCYTES ABSOLUTE 0.39 10/3/uL (0.21-1.20); NEUTROPHILS 58.1 %; NEUTROPHILS ABSOLUTE 4.01 10/3/uL (2.02-8.40); PLATELET COUNT 207 10/3/uL (150-400); RBC DISTRIBUTION WIDTH 14.2 % (12.0-16.0); RED CELL COUNT 2.66 10/6/uL (4.0-5.6); WHITE BLOOD CELLS 6.9 10/3/uL (4.5-10.5)
[2017-03-24 05:29] LABS: MANUAL DIFF NO %
[2017-03-24 05:45] LABS: CALCIUM, SERUM 7.9 MG/DL (8.5-10.4); CHLORIDE, SERUM 109 MMOL/L (96-112); CO2 (CARBON DIOXIDE) 24 MMOL/L (24-34); CREATININE 1.85 MG/DL (0.55-1.02); GFR AFRICAN AMERICAN 28 ML/MIN (>=60); GFR NON AFRICAN AMERICAN 24 ML/MIN (>=60); GLUCOSE, SERUM 120 MG/DL (60-99); SODIUM, SERUM 141 MMOL/L (135-148)
[2017-03-24 05:49] LABS: BUN (BLOOD UREA NITROGEN) 26 MG/DL (6-23)
[2017-03-25] MEDS ORDERED: ZOFRAN ODT4 MG PO (13:25)
[2017-03-25] MEDS ORDERED: MIRALAX POWDER1 PKT PO (13:26)
[2017-03-25] MEDS ORDERED: DUONEB (13:27)
[2017-03-25] MEDS ORDERED: AUG500 PO (13:28)
[2017-03-25] MEDS ORDERED: HYDROCHLOROT25 MG PO (13:29)
[2017-03-25] MEDS ORDERED: T PO (13:29)
[2017-03-25] MEDS ORDERED: NOVOLOG SC (13:33)
[2017-03-25] MEDS ORDERED: BACDS PO (13:34)
[2017-03-25] MEDS ORDERED: LOM PO (13:35)
[2017-03-25] MEDS ORDERED: GLUCAGON IM (13:36)
[2017-03-25] MEDS ORDERED: GLUCOSE TABLET PO (13:37)
[2017-03-25] MEDS ORDERED: GLUCOSE PO (13:38)
[2017-03-25] MEDS ORDERED: NORCO1 TA1 PO (13:39)
[2017-07-05] MEDS ORDERED: PROTONIX PO (16:44)
[2017-07-05] MEDS ORDERED: INSTA-GLUCOSE GEL PO (16:55)
[2017-07-05] MEDS ORDERED: HYDROCHLOROT25 MG PO (16:58)
[2017-07-05] MEDS ORDERED: NYSTATPOW TOP ×2 (17:08→17:09)
[2017-07-05] MEDS ORDERED: CALMOSEPTINE EX (17:09)
[2017-07-05] MEDS ORDERED: CALMOSEPTINE O2.5 OZ TOP (17:10)
[2017-07-05] MEDS ORDERED: VOLTAREN1 % TOP (17:11)
[2017-07-05] MEDS ORDERED: VITC500 PO (17:12)
[2017-07-05] MEDS ORDERED: GERI-LANTA PO (17:12)
[2017-07-05] MEDS ORDERED: BISR PR (17:13)
[2017-07-05] MEDS ORDERED: DESONIDE XX (17:14)
[2017-07-05] MEDS ORDERED: MOMUD PO (17:14)
[2017-07-05] MEDS ORDERED: FLORASTOR250 MG PO (17:15)
[2017-07-05] MEDS ORDERED: MAGOX4 PO (17:15)
[2017-07-05] MEDS ORDERED: VITD PO (17:16)
[2017-07-07] MEDS ORDERED: ZOFRAN ODT4 MG PO (12:48)
[2017-07-07] MEDS ORDERED: AUG500 PO (12:54)
== END 2017-03-25 14:09 | DRG 683 ==
LOC: ER 04:50 → 4SO 05:42
PROVIDERS: Internal Medicine; Nurse Practitioner Acute Care; Specialist
DX: N17.9 Acute kidney failure, unspecified (principal); K57.32 Diverticulitis of large intestine without perforation or abscess without bleeding; E11.22 Type 2 diabetes mellitus with diabetic chronic kidney disease; E11.40 Type 2 diabetes mellitus with diabetic neuropathy, unspecified; Z68.41 Body mass index [BMI] 40.0-44.9, adult; N39.0 Urinary tract infection, site not specified; K57.30 Diverticulosis of large intestine without perforation or abscess without bleeding; I12.9 Hypertensive chronic kidney disease with stage 1 through stage 4 chronic kidney disease, or unspecified chronic kidney disease; N18.3 Chronic kidney disease, stage 3 (moderate); K21.9 Gastro-esophageal reflux disease without esophagitis; F32.9 Major depressive disorder, single episode, unspecified; M81.0 Age-related osteoporosis without current pathological fracture; E66.01 Morbid (severe) obesity due to excess calories; K58.9 Irritable bowel syndrome, unspecified; Z96.653 Presence of artificial knee joint, bilateral; G47.33 Obstructive sleep apnea (adult) (pediatric); Z91.19 Patient's noncompliance with other medical treatment and regimen; Z88.5 Allergy status to narcotic agent; Z88.1 Allergy status to other antibiotic agents; B96.89 Other specified bacterial agents as the cause of diseases classified elsewhere; M25.471 Effusion, right ankle; Z79.899 Other long term (current) drug therapy
CPT/HCPCS: 71020; 73610-RT; 74176; 80048; 80053; 80069; 81001; 82962; 83690; 83735; 84100; 85025; 87045; 87046; 87046-59; 87077; 87086; 87186; 87328; 87329; 87493; 87493-59; 87899; 87899-59; 96365; 96375; 97162-GP; 99284; 99285; A9270-GY; G8978-CL-GP; G8979-CL-GP; G8980-CL-GP; J2405; J3475